=== PATIENT | female | born 1945 | race Caucasian/White ===

== ENCOUNTER 2018-09-05 12:50 | Emergency (ER) | payer MEDICARE ==
[2018-09-05 13:47] LABS: #Eosinphils 0.1 thou/uL (0.0-0.7); #Lymphocytes 1.3 thou/uL (1.20-3.40); #Monocytes 0.5 thou/uL (0.11-0.59); #Neutrophils 3.6 thou/uL (1.40-6.50); %Basophils 0.5 % (0.0-1.0); %Eosinophils 2.3 % (0.0-10.0); %Lymphocytes 23.7 % (21.0-51.0); %Neutrophils 64.6 % (42.0-75.0); Hemoglobin 13.5 g/dL (12.0-16.0); Mean Corpuscular HGB CONC 31.8 g/dL (32.0-36.0); Mean Corpuscular Hemoglobin 28.5 pg (27.0-31.0); Mean Corpuscular Volume 89.6 fL (78.0-98.0); Mean Platelet Volume 7.8 fL (7.4-10.4); Platelet Count 224 thou/uL (130-400); Red Blood Cell (RBC) Count 4.73 mill/uL (4.20-5.40); White Blood Cell (WBC) Count 5.5 thou/uL (4.8-10.8)
--- NOTE | 2018-09-05 14:04 | RAD ---
CHEST TWO VIEWS: HISTORY: Bleeding from left leg. FINDINGS: Heart size is in the upper range of normal limits. Mild increased bronchovascular markings bilateral ly. No confluent pneumonia or overt edema. Atherosclerosis of the aorta with some ectasia. IMPRESSION: 1. Borderline-sized heart. 2. Mild vascular congestion. 3. Atherosclerosis of the aorta with ectasia. POS: OFF
[2018-09-05 14:15] LABS: ALT (SGPT) 18 U/L (8-55); AST (SGOT) 20 U/L (5-34); Albumin 4.2 g/dL (3.4-4.8); Alkaline Phosphatase 85 U/L (40-150); Anion Gap 12 mmol/L (10-20); BUN (Urea Nitrogen) 14 mg/dL (9.8-20.1); Bilirubin, Total 0.8 mg/dL (0.2-1.2); Calc. Creatinine Clearance 0 mL/min (70-130); Calcium 10.1 mg/dL (7.8-10.44); Carbon Dioxide 27 mmol/L (23-31); Chloride 96 mmol/L (98-107); Estimated GFR-MDRD 88; Glucose 110 mg/dL (83-110); Protein, Total 7.2 g/dL (6.0-8.3); Sodium 131 mmol/L (136-145)
--- NOTE | 2018-09-05 14:37 | ULT ---
EXAM: Bilateral lower extremity venous duplex: Deep veins evaluated with color Doppler, spectral analysis, and compression. INDICATIONS: Bilateral lower extremity pain and edema. Compared to 02/26/2008 exam FINDINGS: Deep veins interrogated include common femoral vein, femoral vein, popliteal vein, and post erior tibial vein. These veins show normal compression and blood flow. No evidence of DVT. There is a focus of decreased echogenicity of the left popliteal fossa with complex internal echoes, measuring between 4 and 5 cm, as demonstrated, most likely a complex Stone cyst. Volume of this finding has increased from comparison exam. IMPRESSION: Negative Bilateral venous duplex exam. Enlarging, complex Stone cyst of left popliteal fossa. Correlate clinically.
== END 2018-09-05 17:35 | disposition home or self-care (01) ==
LOC: ERS 12:50
DX: I89.0 Lymphedema, not elsewhere classified (principal); I83.892 Varicose veins of left lower extremity with other complications; M19.90 Unspecified osteoarthritis, unspecified site; E78.5 Hyperlipidemia, unspecified
CPT/HCPCS: 36415; 71046; 80053; 83880; 84484; 85025; 93005; 93970; 94760

== ENCOUNTER 2018-09-16 14:29 | Outpatient (CLI) | payer MEDICARE, BC | END 2018-09-16 14:30 | disposition home or self-care (01) | LOC: ULT 14:29 | PROVIDERS: ATTEND Student in an Organized Health Care Education/Training Program | DX: R60.0 Localized edema (principal); I08.1 Rheumatic disorders of both mitral and tricuspid valves | CPT/HCPCS: 93306 ==

== ENCOUNTER 2020-03-04 10:50 | Outpatient (CLI) | payer MEDICARE ==
--- NOTE | 2020-03-04 11:45 | BD ---
DEXA BONE DENSITOMETRY: (Dual energy X-ray Absorptiometry) DATE: 03/04/2020 HISTORY: 74-year-old white female for postmenopausal, age-related, osteoporosis screening examination. Height: 65 Weight: 247 lbs Age of menopause: 50 COMPARISON: None available. FINDINGS: Bone mineral density (BMD) is given in grams per square centimeter (g/cm2): LUMBAR SPINE: BMD(g/cm2) T-score Z-score L1: 1.288 2.7 4.8 L2: 1.145 1.1 3.4 L3: 1.061 -0.2 2.3 L4: 1.024 -0.3 2.2 Total: 1.127 0.7 3.1 HIP: Femoral neck: 0.733 -1.0 1.0 Total: 0.828 -0.9 0.8 IMPRESSION: 1) The mean bone mineral density of the lumbar spine is normal. Fracture risk is not increased. 2) The bone mineral density of the femoral neck is normal. Fracture risk is not increased. MIGUEL Cook POS: AH
--- NOTE | 2020-04-01 09:39 | MMO ---
Bilateral MAMMO Bilat Screen [facility]. CLINICAL HISTORY: Patient is 74 years old and is seen for screening. The patient has the following family history of breast cancer: aunt. The patient has no personal history of cancer. VIEWS: The views performed were: bilateral craniocaudal with tomosynthesis and bilateral mediolateral oblique with tomosynthesis. This study has been interpreted with the assistance of computer-aided detection. MAMMOGRAM FINDINGS: There are scattered fibroglandular densities. There are stable benign appearing calcifications seen in both breasts. There are no suspicious masses, suspicious calcifications, or new areas of architectural distortion. IMPRESSION: THERE IS NO MAMMOGRAPHIC EVIDENCE OF MALIGNANCY. A ROUTINE FOLLOW-UP MAMMOGRAM IN 1 YEAR IS RECOMMENDED. THE RESULTS OF THIS EXAM WERE SENT TO THE PATIENT. ACR BI-RADS Category 2 - Benign finding MAMMOGRAPHY NOTE: 1. A negative mammogram report should not delay a biopsy if a dominant of clinically suspicious mass is present. 2. Approximately 10% to 15% of breast cancers are not detected by mammography. 3. Adenosis and dense breasts may obscure an underlying neoplasm. Reported by: DEVYN AMY MD Electonically Signed: [id number]
== END 2020-03-04 10:51 | disposition home or self-care (01) ==
LOC: BICMAMMO 10:50
PROVIDERS: ATTEND Family Medicine
DX: Z12.31 Encounter for screening mammogram for malignant neoplasm of breast (principal); Z78.0 Asymptomatic menopausal state; Z13.820 Encounter for screening for osteoporosis; Z80.3 Family history of malignant neoplasm of breast
CPT/HCPCS: 77063; 77067; 77080

== ENCOUNTER 2020-12-22 19:00 | Outpatient (CLI) | payer MEDICARE | END 2020-12-22 19:01 | disposition home or self-care (01) | LOC: SLEEPLAB 19:00 | PROVIDERS: ATTEND Family Medicine | DX: G47.33 Obstructive sleep apnea (adult) (pediatric) (principal); R53.83 Other fatigue; R06.83 Snoring; G47.00 Insomnia, unspecified; G47.10 Hypersomnia, unspecified; I48.91 Unspecified atrial fibrillation; I10 Essential (primary) hypertension | CPT/HCPCS: 95810 ==

== ENCOUNTER 2021-03-10 19:00 | Outpatient (CLI) | payer MEDICARE | END 2021-03-10 19:01 | disposition home or self-care (01) | LOC: SLEEPLAB 19:00 | PROVIDERS: ATTEND Internal Medicine Critical Care Medicine | DX: G47.33 Obstructive sleep apnea (adult) (pediatric) (principal); R53.83 Other fatigue; R06.83 Snoring; G47.10 Hypersomnia, unspecified; I48.91 Unspecified atrial fibrillation; I48.92 Unspecified atrial flutter; E66.9 Obesity, unspecified; Z68.41 Body mass index [BMI] 40.0-44.9, adult | CPT/HCPCS: 95811 ==

== ENCOUNTER 2021-03-14 10:47 | Outpatient (CLI) | payer MEDICARE | END 2021-03-14 10:48 | disposition home or self-care (01) | LOC: BICRAD 10:47 | PROVIDERS: ATTEND Internal Medicine Rheumatology | DX: M25.561 Pain in right knee (principal); M25.562 Pain in left knee ==

== ENCOUNTER 2022-01-16 13:06 | Outpatient (CLI) | payer MEDICARE, OTHER | END 2022-01-16 13:07 | disposition home or self-care (01) | LOC: BICRAD 13:06 | PROVIDERS: ATTEND Family Medicine | DX: J40 Bronchitis, not specified as acute or chronic (principal) | CPT/HCPCS: 71046 ==

== ENCOUNTER 2022-04-25 18:13 | Inpatient (IN) | payer MEDICARE, OTHER ==
[~2022-04-25 18:13] MED LIST: Iopamidol-370 76% 500 ML 1 ML ONE
[2022-04-25] MEDS ORDERED: Furosemide 100 MG/10 ML VIAL ONE (18:19)
[2022-04-25] MEDS ORDERED: niCARdipine 25 MG/10 ML VIAL ONE (18:19)
[2022-04-25] MEDS ORDERED: Diltiazem 125 MG/25 ML ONE (18:21)
[2022-04-25 18:44] LABS: Actual Bicarbonate (HCO3a) 24.1 mEq/L (22-28); Analyzer IN Cardio ER; CO2 Tension 34.3 mmHg (35.0-45.0); Calcium, Ionized (arterial) 1.14 mmol/L (1.12-1.30); Carboxyhemoglobin (COHb) 0.7 gm% (0.0-3.0); Hemoglobin (Hb) 15.2 g/dL (12.0-16.0); O2 Tension (PaO2), arterial 243.2 mmHg (> 70.0); Potassium - ABG Lab 3.97 mmol/L (3.70-5.30); pH, Arterial 7.47 (7.35-7.45)
[2022-04-25 19:03] LABS: #Eosinphils 0.1 thou/uL (0.0-0.7); #Lymphocytes 1.3 thou/uL (1.20-3.40); #Monocytes 0.5 thou/uL (0.11-0.59); #Neutrophils 12.6 thou/uL (1.40-6.50); %Basophils 0.2 % (0.0-1.0); %Eosinophils 0.4 % (0.0-10.0); %Lymphocytes 8.9 % (21.0-51.0); %Monocytes 3.2 % (0.0-10.0); %Neutrophils 87.2 % (42.0-75.0); Hemoglobin 15.5 g/dL (12.0-16.0); Mean Corpuscular HGB CONC 30.9 g/dL (32.0-36.0); Mean Corpuscular Hemoglobin 27.6 pg (27.0-31.0); Mean Corpuscular Volume 89.4 fl (78.0-98.0); Mean Platelet Volume 8.3 fL (7.4-10.4); Platelet Count 226 10x3/uL (130-400); RBC Distribution Width 15.1 % (11.5-14.5); Red Blood Cell (RBC) Count 5.61 mill/uL (4.20-5.40); White Blood Cell (WBC) Count 14.4 10x3/uL (4.8-10.8)
[2022-04-25 19:19] LABS: INR-International Normal Ratio 1.4; PTT 24.7 sec (22.9-36.1); Prothrombin Time 17.2 sec (12.0-14.7)
[2022-04-25 19:48] LABS: Puncture Site LRA
[2022-04-25 19:49] LABS: ALV-art Gradient 213.025 mmHg (0-20)
[2022-04-25] MEDS ORDERED: Acetaminophen 500 MG TAB ONE (19:49)
[2022-04-25] MEDS ORDERED: Piperacillin/Tazobactam 3.375 GM VIAL ONE (20:16)
[2022-04-25 20:24] LABS: Potassium 4.3 mmol/L (3.5-5.1)
[2022-04-25 20:26] LABS: ALT (SGPT) 18 U/L (8-55); AST (SGOT) 36 U/L (5-34); Albumin 4.5 g/dL (3.4-4.8); Alkaline Phosphatase 103 U/L (40-110); Anion Gap 19 mmol/L (10-20); BUN (Urea Nitrogen) 19 mg/dL (9.8-20.1); Calc. Creatinine Clearance 0 mL/min (70-130); Calcium 9.8 mg/dL (7.8-10.44); Carbon Dioxide 17 mmol/L (23-31); Chloride 104 mmol/L (98-107); Estimated GFR 75; Globulin 4.7 g/dL (2.4-3.5); Glucose 134 mg/dL (83-110); Protein, Total 9.2 g/dL (5.8-8.1); Sodium 135 mmol/L (136-145)
[2022-04-25 20:40] LABS: SARS-CoV-2 NAA Rapid Test Not Detected (NotDetected)
[2022-04-25 20:50] LABS: Bilirubin Negative (Negative); Blood, Urine 3+ (Negative); Clarity Turbid (Clear); Glucose, Urine (Dipstick) Normal (Negative); Ketone, Urine Negative (Negative); Leukocyte 500 Leu/uL (Negative); Nitrite 2+ (Negative); Protein, Urine (Dipstick) 20 mg/dL (Neg-Trace); RBC/HPF Greater than 50 HPF (0-3); Specific Gravity, Urine 1.016 (1.002-1.036); Urobilinogen Normal mg/dL (Less than 2); WBC/HPF Greater than 50 HPF (0-3); pH, Urine 5.5 (5.0-9.0)
[2022-04-25 20:58] LABS: Bacteria/HPF 1+ HPF (None Seen)
[2022-04-25] MEDS ORDERED: Vancomycin 1 GM/200 ML (FROZEN) BAG ONE (21:00)
[2022-04-25 22:49] LABS: Lactic Acid 1.7 mmol/L (0.5-2.2)
[2022-04-25] MEDS ORDERED: Senokot S 8.6-50 MG TAB PO PRN (22:55)
[2022-04-25 23:31] LABS: Actual Bicarbonate (HCO3v) 19 mEq/L (22-28); Base Excess -5.1 mEq/L (-2.0 to +3.0); Calcium, Ionized (venous) 1.03 mmol/L (1.16-1.32); Chloride (VBG) 102 mmol/L (98-106); Hemoglobin (Hb) 15.9 g/dL (11.7-16.1); Potassium (VBG) 4.78 mmol/L (3.70-5.30); Sodium 139.4 mmol/L (133-146); pH (venous) 7.37 (7.32-7.43)
[2022-04-26] MEDS: Dextrose 5%-Lactated Ringers 1,000 ML IV SCH ×2 (00:13)
[2022-04-26] MEDS ORDERED: Lactated Ringer's 1,000 ML IV SCH (00:15)
[2022-04-26] MEDS: Acetaminophen 325 MG TAB PO PRN ×2 (03:07→09:43)
[2022-04-26 03:55] VITALS: BMI 46.5
[2022-04-26 04:02] LABS: Anion Gap 16 mmol/L (10-20); BUN (Urea Nitrogen) 18 mg/dL (9.8-20.1); Calc. Creatinine Clearance 126 mL/min (70-130); Calcium 8.8 mg/dL (7.8-10.44); Carbon Dioxide 24 mmol/L (23-31); Chloride 101 mmol/L (98-107); Estimated GFR 81; Glucose 218 mg/dL (83-110); Potassium 3.5 mmol/L (3.5-5.1); Sodium 137 mmol/L (136-145)
[2022-04-26 04:17] LABS: Anisocytosis SLIGHT = 6-15 cells (100X) (0-5/hpf); Band 19 % (5-11); Hemoglobin 12.6 g/dL (12.0-16.0); Lymphocytes 6 % (21-51); MDiff Complete? YES; Mean Corpuscular HGB CONC 32.2 g/dL (32.0-36.0); Mean Corpuscular Hemoglobin 27.8 pg (27.0-31.0); Mean Corpuscular Volume 86.5 fl (78.0-98.0); Mean Platelet Volume 8.3 fL (7.4-10.4); Monocytes 2 % (0-10); Myelocyte 1 % (0-0); Neutrophil 72 % (42-75); Platelet Count 197 10x3/uL (130-400); Platelet Morphology Comment Appears Adequate; RBC Distribution Width 14.9 % (11.5-14.5); Red Blood Cell (RBC) Count 4.54 mill/uL (4.20-5.40); White Blood Cell (WBC) Count 27.3 10x3/uL (4.8-10.8)
[2022-04-26] MEDS: Cefepime 2 GM in Sodium Chloride 0.9% 100 ML IVPB SCH ×3 (05:28→21:25)
[2022-04-26] MEDS ORDERED: Cefepime 2 GM VIAL IVPB SCH (06:00)
[2022-04-26] MEDS: Famotidine 20 MG TAB PO SCH ×2 (09:09→21:17)
[2022-04-26] MEDS: Apixaban 5 MG TAB PO SCH ×2 (09:09→21:18)
[2022-04-26] MEDS ORDERED: Simvastatin 20 MG TAB PO SCH (21:00)
[2022-04-26] MEDS: Atenolol 25 MG TAB PO SCH (21:17)
[2022-04-26] MEDS: Melatonin 3 MG TAB PO PRN (21:18)
[2022-04-26] MEDS: tiZANidine HCl 4 MG TAB PO SCH (21:18)
[2022-04-26] MEDS: Atorvastatin Calcium 10 MG TAB PO SCH (21:19)
[2022-04-27] MEDS: Acetaminophen 325 MG TAB PO PRN (00:01)
[2022-04-27 04:23] LABS: #Lymphocytes 1.1 thou/uL (1.20-3.40); #Monocytes 0.9 thou/uL (0.11-0.59); #Neutrophils 17.8 thou/uL (1.40-6.50); %Eosinophils 0.2 % (0.0-10.0); %Lymphocytes 5.7 % (21.0-51.0); %Monocytes 4.5 % (0.0-10.0); %Neutrophils 89.6 % (42.0-75.0); Mean Corpuscular HGB CONC 31.8 g/dL (32.0-36.0); Mean Corpuscular Hemoglobin 27.8 pg (27.0-31.0); Mean Corpuscular Volume 87.3 fl (78.0-98.0); Mean Platelet Volume 8.5 fL (7.4-10.4); Platelet Count 182 10x3/uL (130-400); Red Blood Cell (RBC) Count 4.33 mill/uL (4.20-5.40); White Blood Cell (WBC) Count 19.8 10x3/uL (4.8-10.8)
[2022-04-27 04:50] LABS: ALT (SGPT) 16 U/L (8-55); AST (SGOT) 28 U/L (5-34); Albumin 3.6 g/dL (3.4-4.8); Alkaline Phosphatase 66 U/L (40-110); Anion Gap 10 mmol/L (10-20); BUN (Urea Nitrogen) 19 mg/dL (9.8-20.1); Bilirubin, Total 0.8 mg/dL (0.2-1.2); Calc. Creatinine Clearance 133 mL/min (70-130); Carbon Dioxide 25 mmol/L (23-31); Chloride 101 mmol/L (98-107); Estimated GFR 87; Globulin 3.4 g/dL (2.4-3.5); Glucose 146 mg/dL (83-110); Potassium 3.4 mmol/L (3.5-5.1); Sodium 133 mmol/L (136-145)
[2022-04-27] MEDS: Cefepime 2 GM in Sodium Chloride 0.9% 100 ML IVPB SCH (05:28)
[2022-04-27] MEDS: Atenolol 25 MG TAB PO SCH ×2 (08:30→20:17)
[2022-04-27] MEDS: Apixaban 5 MG TAB PO SCH ×2 (08:32→20:19)
[2022-04-27] MEDS: Famotidine 20 MG TAB PO SCH ×2 (08:32→20:19)
[2022-04-27] MEDS: Meloxicam 7.5 MG TAB PO SCH (08:32)
[2022-04-27] MEDS: cefTRIAXone\\ROCEPHIN 2 GM in Sodium Chloride 0.9% 100 ML IVPB SCH (08:33)
[2022-04-27] MEDS ORDERED: Potassium Chloride 20 MEQ TAB PO SCH (16:15)
[2022-04-27] MEDS: Atorvastatin Calcium 10 MG TAB PO SCH (20:18)
[2022-04-27] MEDS: tiZANidine HCl 4 MG TAB PO SCH (20:18)
[2022-04-27] MEDS: Melatonin 3 MG TAB PO PRN (22:35)
[2022-04-28] MEDS: Acetaminophen 325 MG TAB PO PRN (01:43)
[2022-04-28] MEDS: HYDROcodone/Acetaminophen 5/325 mg Tablet PO PRN ×2 (06:11→19:04)
[2022-04-28 06:17] LABS: #Eosinphils 0.1 thou/uL (0.0-0.7); #Lymphocytes 1.6 thou/uL (1.20-3.40); #Monocytes 0.6 thou/uL (0.11-0.59); #Neutrophils 7.6 thou/uL (1.40-6.50); %Basophils 0.2 % (0.0-1.0); %Eosinophils 1.4 % (0.0-10.0); %Lymphocytes 15.8 % (21.0-51.0); %Neutrophils 76.6 % (42.0-75.0); Mean Corpuscular HGB CONC 31.8 g/dL (32.0-36.0); Mean Corpuscular Hemoglobin 27.6 pg (27.0-31.0); Mean Corpuscular Volume 86.9 fl (78.0-98.0); Mean Platelet Volume 8.2 fL (7.4-10.4); Platelet Count 187 10x3/uL (130-400); RBC Distribution Width 14.8 % (11.5-14.5); Red Blood Cell (RBC) Count 4.33 mill/uL (4.20-5.40); White Blood Cell (WBC) Count 9.9 10x3/uL (4.8-10.8)
[2022-04-28 06:30] LABS: Anion Gap 13 mmol/L (10-20); BUN (Urea Nitrogen) 19 mg/dL (9.8-20.1); Calc. Creatinine Clearance 141 mL/min (70-130); Calcium 8.9 mg/dL (7.8-10.44); Carbon Dioxide 24 mmol/L (23-31); Chloride 103 mmol/L (98-107); Estimated GFR 91; Glucose 110 mg/dL (83-110); Potassium 3.5 mmol/L (3.5-5.1); Sodium 136 mmol/L (136-145)
[2022-04-28] MEDS: Famotidine 20 MG TAB PO SCH ×2 (09:01→21:23)
[2022-04-28] MEDS: Apixaban 5 MG TAB PO SCH ×2 (09:01→21:23)
[2022-04-28] MEDS: cefTRIAXone\\ROCEPHIN 2 GM in Sodium Chloride 0.9% 100 ML IVPB SCH (09:02)
[2022-04-28] MEDS: Atenolol 25 MG TAB PO SCH (11:09)
[2022-04-28] MEDS: Meloxicam 7.5 MG TAB PO SCH (12:12)
[2022-04-28] MEDS ORDERED: Senokot S 8.6-50 MG TAB PO PRN (14:00)
[2022-04-28] MEDS: Atorvastatin Calcium 10 MG TAB PO SCH (21:24)
[2022-04-28] MEDS: tiZANidine HCl 4 MG TAB PO SCH (21:24)
[2022-04-28] MEDS: Melatonin 3 MG TAB PO PRN (22:50)
[2022-04-29] MEDS: Famotidine 20 MG TAB PO SCH ×2 (09:36→20:35)
[2022-04-29] MEDS: Apixaban 5 MG TAB PO SCH ×2 (09:37→20:35)
[2022-04-29] MEDS: Atenolol 25 MG TAB PO SCH (09:39)
[2022-04-29] MEDS: cefTRIAXone\\ROCEPHIN 2 GM in Sodium Chloride 0.9% 100 ML IVPB SCH (09:42)
[2022-04-29] MEDS: Meloxicam 7.5 MG TAB PO SCH (12:04)
[2022-04-29] MEDS: HYDROcodone/Acetaminophen 5/325 mg Tablet PO PRN (18:07)
[2022-04-29] MEDS: tiZANidine HCl 4 MG TAB PO SCH (20:34)
[2022-04-29] MEDS: Atorvastatin Calcium 10 MG TAB PO SCH (20:35)
[2022-04-29] MEDS: Melatonin 3 MG TAB PO PRN (21:40)
[2022-04-30] MEDS: Atenolol 25 MG TAB PO SCH (08:36)
[2022-04-30] MEDS: Apixaban 5 MG TAB PO SCH ×2 (08:36→21:05)
[2022-04-30] MEDS: Meloxicam 7.5 MG TAB PO SCH (08:36)
[2022-04-30] MEDS: Famotidine 20 MG TAB PO SCH ×2 (08:36→21:06)
[2022-04-30] MEDS: HYDROcodone/Acetaminophen 5/325 mg Tablet PO PRN ×2 (18:24→22:49)
[2022-04-30] MEDS: Melatonin 3 MG TAB PO PRN (21:06)
[2022-04-30] MEDS: Atorvastatin Calcium 10 MG TAB PO SCH (21:06)
[2022-04-30] MEDS: tiZANidine HCl 4 MG TAB PO SCH (21:06)
[2022-05-01] MEDS: Famotidine 20 MG TAB PO SCH ×2 (09:17→20:34)
[2022-05-01] MEDS: Apixaban 5 MG TAB PO SCH ×2 (09:17→20:35)
[2022-05-01] MEDS: Atenolol 25 MG TAB PO SCH (09:17)
[2022-05-01] MEDS: Meloxicam 7.5 MG TAB PO SCH ×2 (09:53→12:45)
[2022-05-01] MEDS: HYDROcodone/Acetaminophen 5/325 mg Tablet PO PRN ×2 (16:07→20:36)
[2022-05-01] MEDS: tiZANidine HCl 4 MG TAB PO SCH (20:34)
[2022-05-01] MEDS: Atorvastatin Calcium 10 MG TAB PO SCH (20:35)
[2022-05-01] MEDS: Melatonin 3 MG TAB PO PRN (20:35)
[2022-05-02] MEDS: Apixaban 5 MG TAB PO SCH (08:00)
[2022-05-02] MEDS: Atenolol 25 MG TAB PO SCH (08:00)
[2022-05-02] MEDS: Famotidine 20 MG TAB PO SCH (08:00)
[2022-05-02] MEDS: HYDROcodone/Acetaminophen 5/325 mg Tablet PO PRN (12:46)
[2022-05-02] MEDS: Meloxicam 7.5 MG TAB PO SCH (12:46)
[2022-05-02 12:50] VITALS: BP 127/80; TEMP 98
== END 2022-05-02 13:09 | DRG 871 ==
LOC: ERS 18:13 → IMCU/EMU 20:53 → T4-B 04-27 09:41
PROVIDERS: ADMIT Student in an Organized Health Care Education/Training Program; ATTEND Internal Medicine
DX: A40.1 Sepsis due to streptococcus, group B (principal); J15.3 Pneumonia due to streptococcus, group B; J96.01 Acute respiratory failure with hypoxia; N39.0 Urinary tract infection, site not specified; Z68.42 Body mass index [BMI] 45.0-49.9, adult; R65.20 Severe sepsis without septic shock; Z20.822 Contact with and (suspected) exposure to COVID-19; I48.91 Unspecified atrial fibrillation; M19.90 Unspecified osteoarthritis, unspecified site; E78.5 Hyperlipidemia, unspecified; I10 Essential (primary) hypertension; I16.0 Hypertensive urgency; E87.6 Hypokalemia; Z90.49 Acquired absence of other specified parts of digestive tract; Z88.1 Allergy status to other antibiotic agents; Z88.2 Allergy status to sulfonamides; Z79.899 Other long term (current) drug therapy; Z79.01 Long term (current) use of anticoagulants; E66.01 Morbid (severe) obesity due to excess calories
CPT/HCPCS: 36415; 36416; 36556; 36600; 71045; 71275; 80048; 80053; 81003; 81015; 82805; 83605; 83880; 84484; 85025; 85610; 85730; 87040; 87077; 87086; 87149; 87186; 93005; 94660; 96365; 96366; 96367; 96375; J0692; J0696; J1940; J1956; J2543; J3370-JW; J3490; J7120; Q9967

== ENCOUNTER 2023-09-04 12:48 | Outpatient (CLI) | payer MEDICARE, OTHER | END 2023-09-04 12:49 | disposition home or self-care (01) | LOC: BICMAMMO 12:48 | PROVIDERS: ATTEND Family Medicine | DX: Z12.31 Encounter for screening mammogram for malignant neoplasm of breast (principal); Z13.820 Encounter for screening for osteoporosis; M85.852 Other specified disorders of bone density and structure, left thigh; Z80.3 Family history of malignant neoplasm of breast; Z78.0 Asymptomatic menopausal state | CPT/HCPCS: 77063; 77067; 77080 ==

== ENCOUNTER 2024-03-27 19:05 | Emergency (ER) | payer MEDICARE, OTHER ==
[2024-03-27] MEDS ORDERED: Ketorolac Tromethamine 30 MG (1 mL) VIAL ONE (19:49)
[2024-03-27] MEDS ORDERED: KETAMINE 100 MG/ML (5ML VIAL) ONE (22:10)
== END 2024-03-28 00:20 | disposition home or self-care (01) ==
LOC: ERS 19:05
DX: S43.004A Unspecified dislocation of right shoulder joint, initial encounter (principal); I48.91 Unspecified atrial fibrillation; I10 Essential (primary) hypertension; X50.0XXA Overexertion from strenuous movement or load, initial encounter; Y93.89 Activity, other specified; Y92.69 Other specified industrial and construction area as the place of occurrence of the external cause; Z79.01 Long term (current) use of anticoagulants
CPT/HCPCS: 73020; 73030; J1885; 96372; 99152

== ENCOUNTER 2025-02-01 09:45 | Outpatient (CLI) | payer MEDICARE, OTHER ==
[~2025-02-01 09:45] MED LIST changes: +GASTROGRAFIN 30 ML BOT ONE; +Iopamidol 370 76% 100 ML VIAL ONE; -Iopamidol-370 76% 500 ML 1 ML ONE
[2025-02-01 12:36] LABS: Estimated GFR - POC 75.0
== END 2025-02-01 09:46 | disposition home or self-care (01) ==
LOC: CT 09:45
PROVIDERS: ATTEND Surgery
DX: N82.3 Fistula of vagina to large intestine (principal)
CPT/HCPCS: 36415; 74177; 82565; Q9963; Q9967